=== PATIENT | male | born 1955 | race Caucasian/White ===

== ENCOUNTER → 2021-05-21 08:21 | Outpatient (BNVA) | payer MEDICARE, SELFPAY | PROVIDERS: Visit Provider Psychiatry & Neurology Psychiatry | DX: F40.01 Agoraphobia with panic disorder (principal) | CPT/HCPCS: 99204 ==

== ENCOUNTER 2021-10-05 08:50 | Outpatient (CLI) | payer MEDICARE, SELFPAY ==
--- NOTE | 2021-10-05 09:30 | USCV_ITS ---
Bobby Matthews Age: 65 Gender: M : 1955 Exam Date: 10/05/2021 09:37 Ordering Phys: Berry Razo MD (Andy) ([email or web address]) Technologist: DION Exam Location: [facility] [place] Indication: Leg pain Risk Factors: Previous Vascular Surgery: RIGHT LEFT BP: 147.0 / 82.00 BP: 143.0/ 78.00 0 0 Waveform Velocity (cm/s) Velocity (cm/s) Waveform Biphasic 51.7 Iliac Prox 82.7 Biphasic Biphasic 147.4 Iliac Mid 103.0 Biphasic Biphasic 157.9 Iliac Distal 283.4 Biphasic Biphasic 155.4 DIESEL POWER MECHANIC 81.5 Biphasic Biphasic 135.7 SFA Prox 93.7 Biphasic Biphasic 120.7 SFA Mid 215.1 Biphasic Biphasic 319.6 SFA Dist 113.6 Biphasic Biphasic 64.8 POP 47.8 Biphasic Monophasic 31.5 FORENSIC PSYCHOLOGIST 23.7 Biphasic Biphasic 43.8 DPA 29.2 Biphasic 0.7 EZIO 0.6 FINDINGS RT FORENSIC PSYCHOLOGIST 100 RT DPA 80 LT FORENSIC PSYCHOLOGIST 82 LT DPA 90 Mild to moderate diffuse plaques in the iliac and femoral arteries bilaterally. Elevated velocity in the distal SFA on the right side and mid SFA on the left side Diminished resting ABIs bilaterally CONCLUSIONS Abnormal resting ABIs bilaterally, suggestive of moderate peripheral artery disease. Elevated velocities suggesting distal SFA disease on the right side and mid SFA disease on the left side Consider exercise EZIO, if clinically indicated to better evaluate the functional status Dr Ethan Bain MD [facility] (Electronically Signed) Final Date: 05 October 2021 17:50 S
== END 2021-10-05 08:51 | disposition home or self-care (01) ==
LOC: RAD 08:58
PROVIDERS: PCP Family Medicine; Visit Provider Thoracic Surgery (Cardiothoracic Vascular Surgery)
DX: M79.606 Pain in leg, unspecified (principal)
CPT/HCPCS: 93925

== ENCOUNTER → 2022-01-19 08:42 | Outpatient (BNVA) | payer MEDICARE, SELFPAY | PROVIDERS: PCP Family Medicine; Visit Provider Family Medicine | DX: E11.9 Type 2 diabetes mellitus without complications (principal) | CPT/HCPCS: 80053; 83036 ==

== ENCOUNTER → 2022-03-21 09:46 | Outpatient (BNVA) | payer MEDICARE, SELFPAY | PROVIDERS: PCP Family Medicine; Visit Provider Family Medicine | DX: E11.9 Type 2 diabetes mellitus without complications (principal); Z51.81 Encounter for therapeutic drug level monitoring; F40.01 Agoraphobia with panic disorder; Z13.220 Encounter for screening for lipoid disorders; R09.89 Other specified symptoms and signs involving the circulatory and respiratory systems; F17.200 Nicotine dependence, unspecified, uncomplicated; K40.20 Bilateral inguinal hernia, without obstruction or gangrene, not specified as recurrent | CPT/HCPCS: 80053; 80061; 83036; 85025 ==

== ENCOUNTER → 2022-04-12 08:33 | Outpatient (BNVA) | payer MEDICARE, SELFPAY | PROVIDERS: PCP Family Medicine; Visit Provider Surgery | DX: K40.20 Bilateral inguinal hernia, without obstruction or gangrene, not specified as recurrent (principal) | CPT/HCPCS: 99203 ==

== ENCOUNTER 2022-06-15 15:31 | Outpatient (CLI) | payer MEDICARE, SELFPAY ==
--- NOTE | 2022-06-15 16:00 | USCV_ITS ---
Bobby Matthews Age: 66 Gender: M : 1955 Exam Date: 06/15/2022 15:40 Ordering Phys: Niko Pulido MD Technologist: JAY Exam Location: [facility] [place] Indication: Bilateral Bruit Risk Factors: Previous Vascular Surgery: Right Brachial BP: / Left Brachial BP: / Right Left Velocity (cm/s) Spectral Plaque Velocity (cm/s) Spectral Plaque Syst/Diast Broadening Syst/Diast Broadening 132.30/23.20 Prox CCA 140.70/ 34.20 91.50/ 16.50 Hetro Mid CCA 122.30/ 27.60 Hetro 93.70/ 17.60 Hetro Distal CCA 123.60/ 30.20 Hetro 136.70/25.00 Hetro Prox ICA 156.90/ 43.50 Hetro 109.10/30.20 Mid ICA 211.10/ 40.20 114.40/34.20 Distal ICA 166.90/ 36.20 102.50 ECA 198.90 1.03 ICA/CCA 1.50 Antegrade Vertebral Antegrade 79.40/ 15.40 cm/s 98.50/ 30.20 cm/s Tri Subclavian Tri 48.30 145.2 0 FINDINGS Comparison: none available. Diffuse bilateral scattered calcified plaque and intimal thickening throughout the common carotid arteries and extending through the bifurcation. Greater plaque on the left. Antegrade vertebral arteries. CONCLUSIONS Bilateral ICA stenosis less than 50%. Diffuse calcified plaque. Dr. Melly Ash DO (Electronically Signed) Final Date: 15 June 2022 16:19 S
== END 2022-06-15 15:32 | disposition home or self-care (01) ==
LOC: RAD 15:31
PROVIDERS: PCP Family Medicine; Visit Provider Family Medicine
DX: R09.89 Other specified symptoms and signs involving the circulatory and respiratory systems (principal); E11.9 Type 2 diabetes mellitus without complications; F17.200 Nicotine dependence, unspecified, uncomplicated; I65.23 Occlusion and stenosis of bilateral carotid arteries
CPT/HCPCS: 93880

== ENCOUNTER → 2022-06-22 11:21 | Outpatient (BNVA) | payer MEDICARE, SELFPAY | PROVIDERS: PCP Family Medicine; Visit Provider Family Medicine | DX: E53.8 Deficiency of other specified B group vitamins (principal); E11.9 Type 2 diabetes mellitus without complications; Z51.81 Encounter for therapeutic drug level monitoring | CPT/HCPCS: 80053; 82607; 83036; 85025 ==

== ENCOUNTER → 2023-06-26 15:55 | Outpatient (BNVA) | payer MEDICARE, SELFPAY | PROVIDERS: PCP Family Medicine; Visit Provider Family Medicine | DX: E53.8 Deficiency of other specified B group vitamins (principal); R35.0 Frequency of micturition; E11.9 Type 2 diabetes mellitus without complications; Z13.220 Encounter for screening for lipoid disorders; Z51.81 Encounter for therapeutic drug level monitoring | CPT/HCPCS: 80053; 80061; 82607; 83036; 84153; 85025 ==

== ENCOUNTER → 2024-04-15 15:12 | Outpatient (BNVA) | payer MEDICARE, SELFPAY | PROVIDERS: PCP Family Medicine; Visit Provider Family Medicine | DX: Z13.220 Encounter for screening for lipoid disorders (principal); Z51.81 Encounter for therapeutic drug level monitoring; E11.9 Type 2 diabetes mellitus without complications; E53.8 Deficiency of other specified B group vitamins | CPT/HCPCS: 80053; 80061; 82607; 83036; 85025 ==

== ENCOUNTER → 2024-07-15 07:10 | Outpatient (BNVA) | payer MEDICARE, SELFPAY | PROVIDERS: PCP Family Medicine; Visit Provider Family Medicine | DX: E11.9 Type 2 diabetes mellitus without complications (principal) | CPT/HCPCS: 83036 ==

== ENCOUNTER → 2025-01-28 09:35 | Outpatient (BNVA) | payer MEDICARE, SELFPAY | PROVIDERS: PCP Family Medicine; Visit Provider Family Medicine | DX: Z00.00 Encounter for general adult medical examination without abnormal findings (principal); Z51.81 Encounter for therapeutic drug level monitoring; E53.8 Deficiency of other specified B group vitamins; Z13.6 Encounter for screening for cardiovascular disorders | CPT/HCPCS: 80053; 80061; 82607; 83036; 85025 ==

== ENCOUNTER → 2025-05-01 08:38 | Outpatient (BNVA) | payer MEDICARE, SELFPAY | PROVIDERS: PCP Family Medicine; Visit Provider Family Medicine | DX: Z51.81 Encounter for therapeutic drug level monitoring (principal); E11.9 Type 2 diabetes mellitus without complications | CPT/HCPCS: 80053; 83036; 85025 ==

== ENCOUNTER 2025-05-06 08:53 | Outpatient (CLI) | payer MEDICARE, SELFPAY ==
--- NOTE | 2025-05-06 09:00 | USCV_ITS ---
Bobby Matthews Age: 69 Gender: M : 1955 Exam Date: 05/06/2025 09:04 Ordering Phys: Niok Pulido MD Technologist: JACE Exam Location: [facility] [place] Indication: bilateral bruit Risk Factors: Previous Vascular Surgery: Right Brachial BP: / Left Brachial BP: / Right Left Velocity (cm/s) Spectral Plaque Velocity (cm/s) Spectral Plaque Syst/Diast Broadening Syst/Diast Broadening 113.90/20.60 Prox CCA 154.40/ 23.50 88.80/ 20.50 Mid CCA 135.30/ 24.90 104.40/25.10 Distal CCA 135.30/ 21.80 107.90/20.40 Prox ICA 141.70/ 21.60 82.50/ 15.50 Mid ICA 196.90/ 18.50 89.80/ 22.80 Distal ICA 101.50/ 17.50 117.50 ECA 176.20 1.00 ICA/CCA 1.00 Antegrade Vertebral Antegrade 59.20/ 12.50 cm/s 54.40/ 10.20 cm/s Tri Subclavian Tri 181.4 177.6 0 0 FINDINGS Comparison:. 06/15/22 Diffuse, moderate bilateral scattered calcified plaque and intimal thickening throughout the common carotid arteries and extending through the bifurcation. Mild elevation of systolic velocity left ICA. No diastolic increase. Antegrade vertebral arteries. CONCLUSIONS Bilateral ICA stenosis less than 50%. Moderate, diffuse carotid atherosclerotic plaque. Dr. Melly Ash DO (Electronically Signed) Final Date: 06 May 2025 10:36 S
--- NOTE | 2025-05-06 10:00 | USCV_ITS ---
Bobby Matthews Age: 69 Gender: M : 1955 Exam Date: 05/06/2025 09:31 Ordering Phys: Niko Pulido MD Technologist: Exam Location: [facility] – [place] Indication: cp sob BP: 120 / 70 HR: 72 Rhythm: Sinus Technical Quality: Adequate MEASUREMENTS (Male / Female) Normal Values 2D ECHO LV Diastolic Diameter PLAX 3.2 cm 4.2 - 5.9 / 3.9 - 5.3 cm IVS Diastolic Thickness 1.5 cm 0.6 - 1.0 / 0.6 - 0.9 cm IVS Systolic Thickness 1.5 cm LVPW Diastolic Thickness 1.1 cm 0.6 - 1.0 / 0.6 - 0.9 cm LVPW Systolic Thickness 1.5 cm LVOT Diameter 2.0 cm LV Ejection Fraction 2D Teich 66.9 % LV Ejection Fraction MOD 4C 74.3 % LV Ejection Fraction MOD 2C 71.7 % LV Ejection Fraction 2C AL 71.6 % LA Diameter 2.9 cm RA Systolic Volume 4C AL 24.8 ml RA Systolic Volume 4C MOD 25.1 ml Aorta at Sinotubular Diameter 3.1 cm IVC Diameter 2.0 cm M-MODE LA Ao Ratio MM 1.1 AV Cusp Separation MM 2.4 cm DOPPLER AV Peak Velocity 131.0 cm/s LVOT Peak Velocity 108.0 cm/s AV Area Cont Eq vti 3.2 cm squared AV Area Cont Eq pk 2.7 cm squared MV Peak Velocity 116.0 cm/s MV Area PHT 2.8 cm squared Mitral E to A Ratio 0.9 TV Peak Velocity 145.3 cm/s TR Peak Velocity 183.0 cm/s TR Peak Gradient 13.4 mmHg TV Peak E Velocity 93.0 cm/s PV Peak Velocity 130.0 cm/s FINDINGS Left Ventricle Left ventricular normal in size. LV systolic function is normal with EF of 65-70%. No regional wall motion abnormalities. Moderate left ventricular hypertrophy. Right Ventricle Normal in size and function Right Atrium Normal in size Left Atrium Normal in size IA Septum Grossly normal Mitral Valve Structurally normal mitral valve. Trace mitral regurgitation. Aortic Valve Aortic valve is thickened and calcified. No significant stenosis or regurgitation. Tricuspid Valve Insufficient TR jet to calculate RVSP Pulmonic Valve Not well visualized Pericardium Normal Aorta Normal in size IVC Appears to be normal. CONCLUSIONS LV systolic function is normal with EF of 65-70%. Moderate left ventricular Hypertrophy. Trace mitral regurgitation No comparison studies are available Denver Collins MD (Electronically Signed) Final Date: 11 May 2025 13:32 S
== END 2025-05-06 08:54 | disposition home or self-care (01) ==
LOC: RAD 08:58
PROVIDERS: PCP Family Medicine; Visit Provider Family Medicine
DX: R09.89 Other specified symptoms and signs involving the circulatory and respiratory systems (principal)
CPT/HCPCS: 93306; 93880

== ENCOUNTER → 2025-06-03 09:52 | Outpatient (BNVA) | payer MEDICARE, SELFPAY | PROVIDERS: PCP Family Medicine; Visit Provider Family Medicine | DX: E11.9 Type 2 diabetes mellitus without complications (principal) | CPT/HCPCS: 83036 ==